=== PATIENT | male | born 1955 | race Caucasian/White ===

== ENCOUNTER → 2025-09-27 10:33 | Outpatient (REF) | payer OTHER, SELFPAY | LOC: RCS 10:33 | PROVIDERS: ATTENDING PHYSICIAN Nurse Practitioner Family; FAMILY PHYSICIAN Family Medicine | DX: H40.1131 Primary open-angle glaucoma, bilateral, mild stage (principal); I49.8 Other specified cardiac arrhythmias | CPT/HCPCS: 93005 ==